=== PATIENT | female | born 1955 | race Caucasian/White ===

== ENCOUNTER 2017-05-23 17:09 | Observation (INO) | payer MEDICAID ==
[~2017-05-23] VITALS: Ht 170.2 cm; Wt 101.9 kg
--- NOTE | ~2017-05-23 | HEMODYNAMI ---
PATIENT:YO LEAL MEDICAL RECORD: [id number] : 57 LOCATION:[place] [id number] ADMISSION DATE: 05/23/17 Generatedon:05/24/201710:25 Patient name: YO LEAL Patient #: [id number] SSN: : 1955 Date of study: 05/24/2017 Page: Of Hemodynamic Procedure Report Patient Data Patient Demographics Procedure consent was obtained First Name: YO Gender: Female Last Name: ELVIS : 1955 Patient #: [id number] Age: 61 year(s) Race: Unknown Additional ID: [id number] Contact details [address]: [address] [place] [address] State: [place] City: [place] Zip code: [address] Past Medical History Allergies Allergen Reaction Date Comments Reported Other allergy 05/24/2017 Abili Admission Admission Data Admission Date: 05/23/2017 Admission Time: 17:40 Room #: [facility] Procedure Procedure Types Cath Procedure Diagnostic Procedure [facility] w/Coronaries Miscellaneous Procedures Moderate Sedation up to 15 minutes Peripheral Cath Diagnostic Procedure Cath Peripheral Four Vessel Arteriogram Procedure Description Procedure Date Procedure Date: 05/24/2017 Procedure Start Time: 10:11 Procedure End Time: 10:24 Procedure Staff Name Function Toribio Sin MD Performing Physician April Sanchez RN Nurse Atiya Meza RT Scrub Judith Miller RT Monitor Procedure Data Cath Procedure Fluoroscopy Diagnostic fluoroscopy Total fluoroscopy Time: 2.7 time: 2.7 min min Diagnostic fluoroscopy Total fluoroscopy dose: 397 dose: 397 mGy mGy Contrast Material Contrast Material Type Amount (ml) Isovue 300 79 Entry Location Entry Primary Successful Side Size Upsize Upsize Entry Closure Succes sful Closure Location (Fr) 1 (Fr) 2 (Fr) Remarks Device Remarks Femoral Right 5 Fr Exoseal artery Estimated blood loss: 5 ml Diagnostic catheters Device Type Used For End Catheter Placement Cordis 5Fr JL 4.0 Left Coronary Catheter (MP) Angiography Cordis 5Fr 3DRC Catheter Right Coronary (MP) Angiography Cordis 5Fr 3DRC Catheter Cervical carotid (MP) (common) arteriography Cordis 5Fr 3DRC Catheter Cervical carotid (MP) (common) arteriography Cordis 5Fr Pigtail LV Angiography Catheter (MP) Procedure Complications No complications Procedure Medications Medication Administration Route Dosage Oxygen NC 2 l/min Lidocaine 2% added to field 20 Heparin Flush Bag added to field 2 bags (1000units/500ml NS) 0.9% NaCl I.V. 100 ml/hr Versed I.V. 1 mg Fentanyl I.V. 50 mcg Versed I.V. 1 mg Fentanyl I.V. 50 mcg Hemodynamics Rest Heart Rate: 92 (bpm) Pressure Samples Time Site Value (mmHg) Purpose Heart Use Rate(bpm) 10:18 LV 166/21,25 EDP 96 Gradients Valve Time Site Site Mean SEP/DFP Peak To Heart Use 1 2 (mmHg) (sec/min) Peak Rate (mmHg) (bpm) Aortic 10:19 LV AO 96 Snapshots Pre Cath Intra NCS Post Cath Vital Signs Time Heart Resp SPO2 NIBP (mmHg) Rhythm Pain Sedation Rate (ipm) (%) Status Level (bpm) 9:58:06 92 23 100 165/97(140) NSR 0 (11) 10(A) , No pain 10:02:39 93 22 99 161/93(125) NSR 0 (11) 10(A) , No pain 10:07:03 104 24 100 No Cuff NSR 0 (11) 10(A) , No pain 10:08:50 93 19 100 155/94(126) NSR 0 (11) 10(A) , No pain 10:12:59 89 20 100 155/95(118) NSR 0 (11) 10(A) , No pain 10:17:11 94 19 100 154/88(121) NSR 0 (11) 10(A) , No pain 10:21:21 93 20 100 157/89(121) NSR 0 (11) 10(A) , No pain Medications Time Medication Route Dose Verified Delivered Reason Notes Effe ctiveness by by 9:56:19 Oxygen NC 2 Toribio Chen used for l/min [facility] [place] Sanchez RN procedure 9:56:27 Lidocaine 2% added 20ml Toribio Rooney for local to vial [facility] Sin anesthetic field MD ARIZMENDI 9:56:34 Heparin Flush added 2 Toribio Rooney used for Bag to bags [place] procedure (1000units/500ml field MD ARIZMENDI NS) 9:56:42 0.9% NaCl I.V. 100 Toribio Chen Per ml/hr [facility] Sanchez RN physician 10:08:57 Versed I.V. 1 mg Toribio Chen for [facility] Sanchez RN sedation 10:09:03 Fentanyl I.V. 50 Toribio Chen for mcg [facility] Sanchez RN sedation 10:17:10 Versed I.V. 1 mg Toribio Chen for [facility] Sanchez RN sedation 10:17:14 Fentanyl I.V. 50 Toribio Chen for mcg [facility] [place] Sanchez RN sedation Procedure Log Time Note 9:35:13 Judith Counts RT(R) sent for patient. Start room use. 9:35:14 Time tracking: Regular hours 9:35:18 Plan of Care:Hemodynamics will remain stable., Cardiac rhythm will remain stable., Comfort level will be maintained., Respiratory function will remain adequate., Patient/ family verbilizes understanding of procedure., Procedure tolerated without complication., Recovers from procedure without complications.. 9:56:19 Oxygen 2 l/min NC was administered by April Sanchez RN; used for procedure; 9:56:27 Lidocaine 2% 20ml vial added to field was administered by Toribio Sin MD; for local anesthetic; 9:56:34 Heparin Flush Bag (1000units/500ml NS) 2 bags added to field was administered by Toribio Sin MD; used for procedure; 9:56:42 0.9% NaCl 100 ml/hr I.V. was administered by April Sanchez RN; Per physician; 9:56:45 Vital chart was started 9:57:55 Patient received from PCU to CCL 2 Alert and oriented. Tansferred to table in Supine position. 9:57:56 Warm blankets applied, and matthew hugger turned on for patient comfort. 9:57:57 Correct patient and procedure confirmed by team. 9:57:58 Signed procedure consent form obtained from patient. 9:57:59 ECG and BP/O2 sat monitors applied to patient. 9:58:00 Full Disclosure recording started 9:58:03 Use device set Femoral Dx 9:58:04 Acist Syringe opened to sterile field. 9:58:05 Bag Decanter opened to sterile field. 9:58:05 Medline Cath Pack opened to sterile field. 9:58:05 Terumo 5Fr Clinton Sheath opened to sterile field. 9:58:06 St Sudheer 260cm J .035 wire opened to sterile field. 9:58:07 Acist Hand Control opened to sterile field. 9:58:07 Acist Manifold opened to sterile field. 9:58:07 Diagnostic Infinity 5Fr Multipack catheter opened to sterile field. 9:58:08 Tegaderm 4 x 4 opened to sterile field. 9:58:19 Rhythm: sinus rhythm 9:58:31 H&P Date Dictated: 05/24/2017 Within 30 days and on chart., H&P Addendum completed by physician on day of procedure. (MUST COMPLETE FOR ALL OUTPATIENTS). 9:58:32 Pre-procedure instructions explained to patient. 9:58:33 Pre-op teaching completed and patient verbalized understanding. 9:58:34 Family in waiting room. 9:58:35 Patient NPO since Midnight. 9:58:45 Patient allergic to Other allergyAbilify 9:58:48 Is the patient allergic to Iodine/contrast media? No. 9:58:50 Is patient on blood thinner?No 9:58:51 Patient diabetic? Yes. 9:59:11 If diabetic: On Metformin? Yes 9:59:13 If on Metformin: Last Dose? 05/23/2017 9:59:17 Previous problem with sedation/anesthesia? No ? 9:59:18 Snore? Yes 9:59:19 Sleep apnea? No 9:59:20 Deviated septum? No 9:59:22 Opens mouth fully? Yes 9:59:22 Sticks out tongue? Yes 9:59:24 Airway obstruction? No ? 9:59:26 Dentures? No ? 9:59:28 Pre procedure: right dorsailis pedis pulse 2+ Normal; easily identifiable; not easily obliterated 9:59:31 Patient pain scale 0/10 ?. 9:59:36 IV patent on arrival in right hand with 0.9% NaCl at KVO. 9:59:42 Lab results completed and on chart. 9:59:44 Right groin area was prepped with chlora-prep and draped in sterile fashion 9:59:45 Alarms reviewed by R. N. 9:59:45 Sharps counted by scrub and verified by R.N. 10:08:30 Final Timeout: patient, procedure, and site verified with staff and physician. All members of the team are in agreement. 10:08:33 Right groin site verified by team. 10:08:36 Physical assessment completed. ASA score P 2 - A patient with mild systemic disease as per Toribio Sin MD. 10:08:39 Sedation plan: IV Moderate Sedation Versed, Fentanyl 10:08:57 Versed 1 mg I.V. was administered by April Sanchez RN; for sedation; 10:09:03 Fentanyl 50 mcg I.V. was administered by April Sanchez RN; for sedation; 10::24 Baseline sample Acquired. 10:10:01 Zero performed for pressure channel P1 10:11:27 Procedure started. 10:11:29 Local anesthetic to right femoral artery with Lidocaine 2% by Toribio Sin MD.INITIAL ACCESS ONLY 10:12:08 A 5 Fr sheath was inserted into the Right Femoral artery 10:12:36 A Cordis 5Fr JL 4.0 Catheter (MP) was advanced over the wire and used for Left Coronary Angiography. 10:14:13 Catheter removed. 10:14:37 A Cordis 5Fr 3DRC Catheter (MP) was advanced over the wire and used for Right Coronary Angiography. 10:16:12 A Cordis 5Fr 3DRC Catheter (MP) was advanced over the wire and used for Cervical carotid (common) arteriography. Right 10:17:10 Versed 1 mg I.V. was administered by April Sanchez RN; for sedation; 10:17:12 A Cordis 5Fr 3DRC Catheter (MP) was advanced over the wire and used for Cervical carotid (common) arteriography.Left 10:17:14 Fentanyl 50 mcg I.V. was administered by April Sanchez RN; for sedation; 10:17:35 Catheter removed. 10:17:41 A Cordis 5Fr Pigtail Catheter (MP) was advanced over the wire and used for LV Angiography. 10:19:01 LV gram done using JASON 10:19:05 EF : 55 % 10:19:05 LV hemodynamics recorded. 10:19:08 Injector settings: Ml/sec: 10, Volume: 20, 10:19:14 Catheter removed. 10:19:22 Cordis 5Fr Exoseal opened to sterile field. 10:19:29 Sheath removed intact; hemostasis achieved with Exoseal to the Right Femoral artery. 10:19:31 Procedure ended.(Physican Out) 10:21:37 Fluoroscopy time 02.70 minutes. 10:21:41 Fluoroscopy dose: 397 mGy 10:21:41 Flurop Dose total: 397 10:21:46 Contrast amount:Isovue 300 79ml. 10:21:47 Sharps counted by scrub and verified by R.N. 10:21:48 Insertion/operative site no bleeding no hematoma. 10:21:50 Post-op/insertion site Right Femoral artery dressed using a 4 x 4 and Tegaderm. 10:21:54 Post right femoral artery:stable, clean and dry 10:22:40 Post Procedure Pulses reassessed and unchanged 10:22:43 Post-procedure physical assessment completed. ASA score P 2 - A patient with mild systemic disease as per Toribio Sin MD. 10:22:45 Post procedure rhythm: unchanged. 10:22:48 Estimated blood loss: 5 ml 10:22:49 Post procedure instruction explained to patient.Patient verbalizes understanding. 10:22:49 Patient needs reinforcement of post procedure teaching. 10:23:07 Procedure type changed to Cath procedure, Diagnostic procedure, LHC, LHC w/Coronaries, Miscellaneous Procedures, Moderate Sedation up to 15 minutes, Peripheral Cath Diagnostic Procedure, Cath Peripheral, Four Vessel Arteriogram 10:23:13 Procedure Complication : No complications 10:23:15 See physician's report for complete and final results. 10:24:34 Procedure and supply charges have been captured, reviewed, submitted and are correct. 10:24:35 Vital chart was stopped 10:24:36 Report given to PCU. 10:24:40 Patient transfered to PCU with Bed. 10:24:41 Procedure ended. 10:24:41 Full Disclosure recording stopped 10:24:51 End room use (Document Last) Device Usage Item Name Manufacture Quantity Catalog Hospital Part Current Minimal Lo t# / Number Charge Number Stock Stock Serial# Code [facility]ist [facility] 1 [id number] [id number] 352633 536925 20 Syringe [employer] Bag Microtek 1 2002S 401993 61385 137395 5 [employer] Medline Cardinal 1 [id number] 033671 04180 575803 5 Cath Pack Health Terumo 5Fr Terumo 1 [id number] 497335 035610 193917 [address] Sudheer 1 774238 104024 637514 412303 30 260cm J .035 wire Acist Hand Acist 1 77711 131480 890323 110038 5 Control [employer] Systems Inc Acist Acist 1 22485 862821 242613 027298 5 Manifold Medical Systems Inc Diagnostic Cardinal 1 [id number] 455559 83055 236866 30 Infinity Health 5Fr Multipack catheter Tegaderm 4 3M 1 1626W 316135 057639 868319 5 x 4 Cordis 5Fr Cardinal 1 [id number] 5 JL 4.0 Health Catheter (MP) Cordis 5Fr Cardinal 1 433209 5 3DRC Health Catheter (MP) Cordis 5Fr Cardinal 1 575423 5 Pigtail Health Catheter (MP) Cordis 5Fr Cardinal 1 EX500 187701 361822 510357 10 [facility] [employer]ak Logic Signature Audit Kimper Stage Time Signature Unsigned Intra-Procedure 05/24/2017 Judith 10:25:01 AM Counts RT(R) Signatures Monitor : Judith Signature : Counts RT Date : Time : [place] [id number] [place] [id number]
[~2017-05-23 17:09] MED LIST: BAYER CHEWABLE81 MG PO; GABAPENTIN100 MG PO; GLUCOPHAGE1000 MG PO; HYDROCODON-ACE1 EAC7 PO; HYZAAR 100-12.51 TAB PO; LEXAPRO20 MG PO; NORVASC5 MG PO; PRAVACHOL40 MG PO; VICTOZA0.6 MG/0.1 SQ
[2017-05-23] MEDS ORDERED: SAVELLA50 MG PO (18:09)
[2017-05-23] MEDS ORDERED: MOBIC7.5 MG PO (18:11)
[2017-05-23] MEDS ORDERED: GLIMEPIRIDE1 MG PO (18:11)
[2017-05-23] MEDS ORDERED: LIPITOR80 MG PO (18:11)
[2017-05-23 18:12] VITALS: BP 166/85; Ht 170.2 cm; Wt 101.9 kg
[2017-05-23] MEDS ORDERED: PROTONIX40 MG PO (18:12)
--- NOTE | 2017-05-23 18:19 | NUR ---
PT TO FLOOR FROM DR OFFICE ALERT AND ORIENTED DENIES CHEST PAIN AT THIS TIME. ADMISSION COMPLETE. FAMILY AT BEDSIDE.
[2017-05-23 18:40] LABS: BASOPHILS 0.2 % (0-2); EOSINOPHILS 3.8 % (0-7); HEMATOCRIT 42.7 % (36.0-48.0); HEMOGLOBIN 14.3 g/dL (12-16); IMMATURE GRANULOCYTES 0.3 % (0-5); MCH 28.8 pg (26.0-34.0); MCHC 33.5 g/dL (31.0-37.0); MCV 85.9 fL (80.0-100.0); MEAN PLATELET VOLUME 9.7 fL (7.4-10.4); MONOCYTES 8.4 % (2-11); NEUTROPHILS 49.3 % (40-80); PLATELET COUNT 262 10x3/uL (130-400); RBC 4.97 10x6/uL (4.00-5.40); RDW 12.7 % (11.5-14.5); WBC 10.5 10x3/uL (4.8-10.8)
--- NOTE | 2017-05-23 18:42 | NUR ---
PT SITTING UP IN BED EATING DINNER TRAY DENIES NEEDS
[2017-05-23 19:00] VITALS: BP 128/73
[2017-05-23 19:37] LABS: ALBUMIN 3.9 g/dL (3.4-5.0); ALKALINE PHOSPHATASE 79 U/L (46-116); ALT (SGPT) 33 U/L (10-68); BILIRUBIN - TOTAL 0.59 mg/dL (0.2-1.3); CALC OSMOLALITY 280 mosm/kg (275-300); CALCIUM 9.5 mg/dL (8.5-10.1); CARBON DIOXIDE 23.8 mmol/L (21.0-32.0); CHLORIDE - SERUM 98 mmol/L (98-107); CREATININE - SERUM 1.3 mg/dL (0.6-1.3); GLUCOSE 152 mg/dL (74-106); POTASSIUM - SERUM 3.9 mmol/L (3.5-5.1); PROTEIN - SERUM 8.1 g/dL (6.4-8.2); SODIUM 137 mmol/L (136-145); UREA NITROGEN 23 mg/dL (7-18); eGFR NON AFRICAN AMERICAN 44 mL/min (90-120)
[2017-05-23 20:02] LABS: CHOL - HDL RATIO 3.6 ratio (2.3-4.1); CHOLESTEROL, TOTAL 125 mg/dL (0-200); CREATINE KINASE 59 UL (21-215); HDL CHOLESTEROL 35 mg/dL (32-96); LDL CHOLESTEROL 58 mg/dL (0-100); LDL-HDL RATIO 1.7 ratio (1.5-3.5); TRIGLYCERIDE 161 mg/dL (30-200); TROPONIN-I < 0.017 ng/mL (0.000-0.060)
--- NOTE | 2017-05-23 20:20 | NUR ---
RESUMED CARE OF PT, LYING IN BED RESPIRATIONS EVEN AND UNLABORED ON ROOM AIR. 91 SR ON TELEMETRY. RIGHT HAND SALINE LOCKED. WILL CONTINUE TO MONITOR. SEE NURSE ASSESSMENT. CALL LIGHT IN REACH.
[2017-05-24] VITALS: BP 129/78
--- NOTE | 2017-05-24 00:03 | NUR ---
CALL LIGHT IN REACH, WILL CONTINUE TO MONITOR.
[2017-05-24 00:44] LABS: CREATINE KINASE 47 UL (21-215)
[2017-05-24 00:45] LABS: TROPONIN-I < 0.017 ng/mL (0.000-0.060)
[2017-05-24 04:00] VITALS: BP 121/72
[2017-05-24 05:03] LABS: BASOPHILS 0.4 % (0-2); EOSINOPHILS 5.2 % (0-7); HEMATOCRIT 39.2 % (36.0-48.0); HEMOGLOBIN 13.1 g/dL (12-16); IMMATURE GRANULOCYTES 0.4 % (0-5); LYMPHOCYTES 41.6 % (15-50); MCH 28.7 pg (26.0-34.0); MCHC 33.4 g/dL (31.0-37.0); MCV 85.8 fL (80.0-100.0); MEAN PLATELET VOLUME 9.5 fL (7.4-10.4); MONOCYTES 9.1 % (2-11); NEUTROPHILS 43.3 % (40-80); PLATELET COUNT 271 10x3/uL (130-400); RBC 4.57 10x6/uL (4.00-5.40); RDW 12.8 % (11.5-14.5); WBC 8.1 10x3/uL (4.8-10.8)
[2017-05-24 05:42] LABS: CALCIUM 8.7 mg/dL (8.5-10.1); CHLORIDE - SERUM 98 mmol/L (98-107); CREATINE KINASE 42 UL (21-215); CREATININE - SERUM 1.4 mg/dL (0.6-1.3); MAGNESIUM - SERUM 1.5 mg/dL (1.8-2.4); PHOSPHOROUS 4.5 mg/dL (2.5-4.9); POTASSIUM - SERUM 3.6 mmol/L (3.5-5.1); SODIUM 136 mmol/L (136-145); TROPONIN-I < 0.017 ng/mL (0.000-0.060); UREA NITROGEN 22 mg/dL (7-18); eGFR NON AFRICAN AMERICAN 41 mL/min (90-120)
[2017-05-24 05:51] LABS: CALC OSMOLALITY 280 mosm/kg (275-300); CARBON DIOXIDE 29.9 mmol/L (21.0-32.0); GLUCOSE 210 mg/dL (74-106)
--- NOTE | 2017-05-24 07:30 | NUR ---
RECEIVED PT IN BED AAOX4 RESP UNLABORED SKIN W/D COLOR WNL NAD NOTED
[2017-05-24 08:25] VITALS: BP 143/74
--- NOTE | 2017-05-24 09:25 | NUR ---
RATIONALE FOR SCD'S EXPLAINED. REFUSED SCD'S
[2017-05-24 12:04] VITALS: BP 120/70
--- NOTE | 2017-05-24 12:40 | NUR ---
REVIEWED DISCHARGED INSTRUCTIONS WITH PT STATES UNDERSTANDING COPY GIVEN DCD SALINE LOCK TO RT HAND WITH IV CATHETER INTACT SITE FREE OF REDNESS OR EDEMA PT DISCHARGED HOME IN STABLE CONDITION WITH ALL PERSONAL BELONGINGS LEFT VIA W/C
--- NOTE | 2017-05-25 17:14 | DS ---
PATIENT:YO LEAL :57 MEDICAL RECORD: [id number] DISCHARGE SUMMARY ADMISSION DATE: 05/23/17 DISCHARGE DATE: 05/24/17 DATE OF ADMISSION: 05/23/2017 DATE OF DISCHARGE: 05/24/2017 ADMITTING DIAGNOSES: Chest pain, shortness of breath and nausea. HOSPITAL COURSE: This is a 61-year-old white female admitted from the walk-in clinic with diagnoses as outlined above. See paper chart H&P. She was admitted. Cardiac enzymes cycled, placed on telemetry monitoring. All events, lab procedures, diagnostic testing are well documented in the records. Dr. Sin was consulted. His recommendations were followed. She was taken to the candlemaking laborer and no intervention done. She is stable for dismissal home; it is felt her medicine Savella caused her symptoms. She is dismissed home. We will have her follow up with house calls. Please refer to med rec. She has been told to hold the metformin for 48 hours. She is afebrile, vital signs stable. Glucose 220. LABORATORY DATA: White count 8, hemoglobin 13, platelets are 271. Sodium 136, potassium 3.6, chloride 98, CO2 of 29.9, BUN 22, serum creatinine 1.4. Troponins were all negative. Diagnoses are the same as above. Also includes chest pain, shortness of breath due to side effects of medication Savella and history of diabetes mellitus. Greater than 30 minutes was spent on this discharge. TRANSINT:[id number] Voice Confirmation ID: [id number] DOCUMENT ID: [id number] Dictated By: ELAINE MONTES RN I have interviewed/examined the above patient and agree with these documented findings. JANNETH TRUONG MD at 1714 CC: [id number] DICTATION DATE: 05/24/17 1233 SEASONAL PACKAGE HANDLER: 05/25/17 0358 DIS IN 05/24/17 [facility] [address] [place] [address]
--- NOTE | 2017-05-27 13:52 | OP ---
PATIENT NAME: YO LEAL MEDICAL RECORD: [id number] :57 LOCATION:[address].M[address].[facility]19 ADMISSION DATE:05/23/17 SURGEON: NITHYA COURTNEY MD DATE OF OPERATION: 05/24/2017 PROCEDURE: Left heart catheterization, selective coronary angiography, +4 vessel arteriography, right femoral artery approach. CATHETERS: A 5-Ukrainian sheath, 5/4 left and right Charlie, 5/4 pig. The procedure was well tolerated and the patient returned to robbins, sheath removed. ExoSeal device was placed. FINDINGS: Left ventriculography in 30-degree JASON view. Normal wall motion, normal systolic function. CORONARY ANATOMY. LEFT MAIN: Left main is free of disease. LAD: Free of disease in the diagonal system. CIRCUMFLEX: Free of disease in the marginal system. RIGHT CORONARY ARTERY: Dominant artery and gives rise to PDA, free of disease. CAROTID ARTERY ARTERIOGRAPHY: 1. Right common carotid artery was selectively engaged to the right subclavian, right common carotid smooth-walled vessel, free of disease. Right external carotid smooth-walled vessel, free of disease. Right internal carotid smooth-walled vessel, free of disease. 2. Left common carotid was selectively engaged and this showed a smooth-walled common carotid, no significant disease. 3. Left external carotid, smooth-walled vessel, free of disease. 4. Left internal carotid, smooth-walled vessel, free of disease. IMPRESSION: 1. Normal left ventricular systolic function. 2. Normal 4-vessel arteriography and nonvascular cause of symptomology. TRANSINT:[id number] Voice Confirmation ID: [id number] DOCUMENT ID: [id number] NITHYA COURTNEY MD at 1352 CC: [id number] DICTATION DATE: 05/24/17 1028 CONTRACTS ADVISOR: 05/24/17 1445 DIS IN 05/24/17 [place] [id number] [place] [address]
== END 2017-05-24 13:30 | disposition home or self-care (01) ==
LOC: D.ER 17:09 → EDSTATUS 17:39 → OBSVTIME 17:40 → D.M2 17:40
PROVIDERS: Emergency Medicine; ADMIT Emergency Medicine
DX: R07.9 Chest pain, unspecified (principal); E11.9 Type 2 diabetes mellitus without complications; I10 Essential (primary) hypertension; E78.5 Hyperlipidemia, unspecified; R06.02 Shortness of breath; T50.995A Adverse effect of other drugs, medicaments and biological substances, initial encounter; R20.2 Paresthesia of skin